=== PATIENT | male | born 1965 | race African-American/Black ===

== ENCOUNTER 2022-02-26 16:46 | Emergency (ER) | payer SELFPAY ==
[2022-02-26] MEDS ORDERED: Ibuprofen 200 MG TAB ONE (17:09)
[2022-02-26] MEDS ORDERED: Acetaminophen 500 MG TAB ONE (17:09)
[2022-02-26] MEDS ORDERED: Ibuprofen 800 MG TAB ONE (17:10)
== END 2022-02-26 17:23 ==
LOC: BURERS 16:46
DX: S43.51XA Sprain of right acromioclavicular joint, initial encounter (principal); M19.011 Primary osteoarthritis, right shoulder; I10 Essential (primary) hypertension; X50.9XXA Other and unspecified overexertion or strenuous movements or postures, initial encounter